=== PATIENT | male | born 1965 | race Caucasian/White ===

== ENCOUNTER 2016-08-06 13:59 | Emergency (ER) | payer MEDICAID ==
[2016-08-06] MEDS ORDERED: KETOROLAC 60 MG/2 ML VIAL IM ONE (15:07)
== END 2016-08-06 16:43 | disposition home or self-care (01) ==
LOC: ER 13:59
DX: S83.91XA Sprain of unspecified site of right knee, initial encounter (principal); F17.210 Nicotine dependence, cigarettes, uncomplicated
CPT/HCPCS: 96372